=== PATIENT | female | born 1950 | race Native Hawaiian/Other Pacific Islander ===

== ENCOUNTER 2016-10-28 06:32 | Outpatient (CLI) | payer BC ==
[2016-10-28 07:45] LABS: BASOPHILS # (AUTO) 0.1 /CMM (0.0-0.2); BASOPHILS % (AUTO) 0.8 % (0.0-2.0); EOSINOPHILS # (AUTO) 0.4 /CMM (0.0-0.7); EOSINOPHILS % (AUTO) 6.9 % (0.0-6.0); HEMATOCRIT 44 % (33-45); HEMOGLOBIN 14.5 g/dL (11.5-14.8); LYMPHOCYTES % (AUTO) 31.6 % (20.0-44.0); MEAN CORPUSCULAR HEMOGLOBIN 31 PG (26.0-33.0); MEAN CORPUSCULAR HGB CONC 33 g/dl (31.0-36.0); MEAN CORPUSCULAR VOLUME 93 fL (82-100); MONOCYTES # (AUTO) 0.4 /CMM (0.1-1.30); MONOCYTES % (AUTO) 6.5 % (2.0-12.0); NEUTROPHILS # (AUTO) 3.5 /CMM (1.8-8.9); NEUTROPHILS % (AUTO) 54.2 % (43.0-81.0); PLATELET COUNT (AUTO) 287 /CMM (150-450); RDW COEFFICIENT OF VARIATION 13.6 (11.5-15.0); RED BLOOD CELL COUNT(AUTO) 4.75 MIL/uL (4.0-5.2); WHITE BLOOD COUNT (AUTO) 6.4 K/uL (4.3-11.0)
[2016-10-28 08:06] LABS: BILIRUBIN,TOTAL 0.6 mg/dL (0.2-1.0); CALCIUM, SERUM 8.6 mg/dL (8.5-10.1); CREATININE 0.8 mg/dL (0.6-1.3); POTASSIUM 3.8 mmol/L (3.5-5.1); TOTAL PROTEIN, SERUM 8.3 g/dL (6.4-8.2)
[2016-10-28 08:12] LABS: THYROID STIMULATING HORMONE 1.119 uIU/mL (0.358-3.74); URIC ACID 3.2 mg/dL (2.6-7.2)
[2016-10-28 09:21] LABS: EOSINOPHILS % (MANUAL) 9 % (0-4); LYMPHOCYTES % (MANUAL) 30 % (16-48); MONOCYTES % (MANUAL) 4 % (0-11.0); NEUTROPHILS % (MANUAL) 57 (42-76)
[2016-10-29 10:28] LABS: APPEARANCE,URINE CLEAR (CLEAR); COLOR,URINE YELLOW (YELLOW)
[2016-10-29 10:29] LABS: BILIRUBIN,URINE NEGATIVE (NEGATIVE); BLOOD, URINE 1+ Ery/uL (NEGATIVE); KETONES,URINE NEGATIVE (NEGATIVE); NITRITE, URINE NEGATIVE (NEGATIVE); PROTEIN,URINE NEGATIVE (NEGATIVE); UGLUCOSE NEGATIVE (NEGATIVE); UROBILINOGEN,URINE 0.2 EU/dL (0.2)
[2016-10-29 10:30] LABS: LEUKOCYTE ESTERASE ,URINE TRACE (NEGATIVE)
[2016-10-29 10:32] LABS: BACTERIA,URINE Rare /HPF (None Seen); SQUAMOUS EPITHELIAL CELL,UR 0-2 /HPF (None Seen); WBC,URINE 0-2 /HPF (0-3)
== END 2016-10-28 23:59 | disposition home or self-care (01) ==
LOC: LAB 06:32
PROVIDERS: ATTEND Legal Medicine
DX: R06.02 Shortness of breath (principal); E78.5 Hyperlipidemia, unspecified; E55.9 Vitamin D deficiency, unspecified; R79.89 Other specified abnormal findings of blood chemistry
CPT/HCPCS: 36415; 71020-TC; 80053-TC; 80061-TC; 81000-TC; 82306; 84443-TC; 84550-TC; 85025-TC

== ENCOUNTER 2018-03-24 06:12 | Outpatient (CLI) | payer BC ==
[2018-03-24 07:26] LABS: BASOPHILS # (AUTO) 0.1 /CMM (0.0-0.2); BASOPHILS % (AUTO) 1.3 % (0.0-2.0); EOSINOPHILS % (AUTO) 10.5 % (0.0-6.0); HEMATOCRIT 43 % (33-45); LYMPHOCYTES # (AUTO) 1.6 /CMM (0.8-4.8); LYMPHOCYTES % (AUTO) 30.3 % (20.0-44.0); MEAN CORPUSCULAR HGB CONC 33 g/dl (31.0-36.0); MEAN CORPUSCULAR VOLUME 95 fL (82-100); MONOCYTES # (AUTO) 0.3 /CMM (0.1-1.30); MONOCYTES % (AUTO) 5.8 % (2.0-12.0); NEUTROPHILS # (AUTO) 2.8 /CMM (1.8-8.9); NEUTROPHILS % (AUTO) 52.1 % (43.0-81.0); PLATELET COUNT (AUTO) 308 /CMM (150-450); RED BLOOD CELL COUNT(AUTO) 4.55 MIL/uL (4.0-5.2); WHITE BLOOD COUNT (AUTO) 5.3 K/uL (4.3-11.0)
[2018-03-24 07:27] LABS: APPEARANCE,URINE CLEAR (CLEAR); BILIRUBIN,URINE NEGATIVE (NEGATIVE); BLOOD, URINE 1+ Ery/uL (NEGATIVE); KETONES,URINE NEGATIVE (NEGATIVE); LEUKOCYTE ESTERASE ,URINE NEGATIVE (NEGATIVE); NITRITE, URINE NEGATIVE (NEGATIVE); PROTEIN,URINE NEGATIVE (NEGATIVE); UGLUCOSE NEGATIVE (NEGATIVE); UROBILINOGEN,URINE 0.2 EU/dL (0.2)
[2018-03-24 07:29] LABS: COLOR,URINE DARK YELLOW (YELLOW)
[2018-03-24 07:31] LABS: BACTERIA,URINE Few /HPF (None Seen); MUCUS,URINE Moderate /LPF (None Seen); SQUAMOUS EPITHELIAL CELL,UR Few /HPF (None Seen); WBC,URINE 0-2 /HPF (0-3)
[2018-03-24 07:38] LABS: ALBUMIN 3.7 g/dL (3.4-5.0); BILIRUBIN,TOTAL 0.6 mg/dL (0.2-1.0); CALCIUM, SERUM 8.9 mg/dL (8.5-10.1); CREATININE 0.8 mg/dL (0.6-1.3); POTASSIUM 3.8 mmol/L (3.5-5.1)
[2018-03-24 07:44] LABS: THYROID STIMULATING HORMONE 0.641 uIU/mL (0.358-3.74)
== END 2018-03-24 23:59 | disposition home or self-care (01) ==
LOC: LAB 06:12
PROVIDERS: ATTEND Legal Medicine
DX: M41.85 Other forms of scoliosis, thoracolumbar region (principal); J90 Pleural effusion, not elsewhere classified
CPT/HCPCS: 36415; 71046; 80053-TC; 80061-TC; 81000-TC; 82306; 84443-TC; 85025-TC

== ENCOUNTER 2018-06-17 13:47 | Emergency (ER) | payer MEDICARE, BC ==
[~2018-06-17] VITALS: Ht 149.9 cm; Wt 68.0 kg
[2018-06-17 13:47] VITALS: BP 195/123
== END 2018-06-17 14:35 | disposition home or self-care (01) ==
LOC: ER 13:48
DX: S46.812A Strain of other muscles, fascia and tendons at shoulder and upper arm level, left arm, initial encounter (principal); S16.1XXA Strain of muscle, fascia and tendon at neck level, initial encounter; I10 Essential (primary) hypertension; Z98.890 Other specified postprocedural states; Z60.2 Problems related to living alone; V49.59XA Passenger injured in collision with other motor vehicles in traffic accident, initial encounter; Y93.89 Activity, other specified; Y92.413 State road as the place of occurrence of the external cause; Y99.8 Other external cause status

== ENCOUNTER 2018-08-06 09:43 | Outpatient (CLI) | payer BC, MEDICARE | END 2018-08-06 23:59 | disposition home or self-care (01) | LOC: MRI 09:43 | PROVIDERS: ATTEND Legal Medicine | DX: S46.812A Strain of other muscles, fascia and tendons at shoulder and upper arm level, left arm, initial encounter (principal); M25.412 Effusion, left shoulder; M75.52 Bursitis of left shoulder; M75.82 Other shoulder lesions, left shoulder; X58.XXXA Exposure to other specified factors, initial encounter; Y93.89 Activity, other specified; Y92.89 Other specified places as the place of occurrence of the external cause; Y99.8 Other external cause status | CPT/HCPCS: 73221-TC ==

== ENCOUNTER 2018-08-18 07:58 | Outpatient (CLI) | payer BC, MEDICARE | END 2018-08-18 23:59 | disposition home or self-care (01) | LOC: CARD 07:58 | PROVIDERS: ATTEND Internal Medicine Interventional Cardiology | DX: I08.0 Rheumatic disorders of both mitral and aortic valves (principal); I10 Essential (primary) hypertension | CPT/HCPCS: 93307-TC ==

== ENCOUNTER 2018-10-23 06:36 | Outpatient (CLI) | payer BC, MEDICARE ==
[2018-10-23 07:44] LABS: APPEARANCE,URINE CLEAR (CLEAR); BASOPHILS # (AUTO) 0.1 /CMM (0.0-0.2); BASOPHILS % (AUTO) 1.1 % (0.0-2.0); BILIRUBIN,URINE NEGATIVE (NEGATIVE); BLOOD, URINE NEGATIVE Ery/uL (NEGATIVE); COLOR,URINE YELLOW (YELLOW); EOSINOPHILS % (AUTO) 6.7 % (0.0-6.0); HEMATOCRIT 45 % (33-45); HEMOGLOBIN 14.7 g/dL (11.5-14.8); KETONES,URINE NEGATIVE (NEGATIVE); LEUKOCYTE ESTERASE ,URINE NEGATIVE (NEGATIVE); LYMPHOCYTES # (AUTO) 2.2 /CMM (0.8-4.8); LYMPHOCYTES % (AUTO) 32.4 % (20.0-44.0); MEAN CORPUSCULAR HGB CONC 33 g/dl (31.0-36.0); MEAN CORPUSCULAR VOLUME 96 fL (82-100); MONOCYTES # (AUTO) 0.4 /CMM (0.1-1.30); MONOCYTES % (AUTO) 6.1 % (2.0-12.0); NEUTROPHILS # (AUTO) 3.6 /CMM (1.8-8.9); NEUTROPHILS % (AUTO) 53.7 % (43.0-81.0); NITRITE, URINE NEGATIVE (NEGATIVE); PLATELET COUNT (AUTO) 274 /CMM (150-450); PROTEIN,URINE NEGATIVE (NEGATIVE); RED BLOOD CELL COUNT(AUTO) 4.66 MIL/uL (4.0-5.2); UGLUCOSE NEGATIVE (NEGATIVE); UROBILINOGEN,URINE 0.2 EU/dL (0.2); WHITE BLOOD COUNT (AUTO) 6.7 K/uL (4.3-11.0)
[2018-10-23 09:00] LABS: CREATININE 0.9 mg/dL (0.6-1.3); POTASSIUM 3.8 mmol/L (3.5-5.1)
[2018-10-26 10:36] LABS: ALBUMIN 4.3 g/dL (3.4-5.0); BILIRUBIN,DIRECT 0.1 mg/dL (0.0-0.2); BILIRUBIN,TOTAL 0.6 mg/dL (0.2-1.0); TOTAL PROTEIN, SERUM 8.5 g/dL (6.4-8.2)
== END 2018-10-23 23:59 | disposition home or self-care (01) ==
LOC: LAB 06:36
PROVIDERS: ATTEND Legal Medicine
DX: Z01.818 Encounter for other preprocedural examination (principal); I70.0 Atherosclerosis of aorta; I10 Essential (primary) hypertension
CPT/HCPCS: 36415; 71046; 80048-TC; 80061-TC; 80076-TC; 81000-TC; 85025-TC; 85610-TC; 85730-TC; 86850-TC

== ENCOUNTER 2018-10-30 05:19 | Inpatient (IN) | payer BC, MEDICARE ==
[2018-10-30] VITALS (10 sets, daily range): BP systolic 87–143; BP diastolic 54–75
[~2018-10-30] VITALS: Ht 154.9 cm; Wt 70.3 kg
[2018-10-30] MEDS ORDERED: CEFAZOLIN SODIUM/DEXTROSE,ISO 50 ML IV ONE (05:57)
[2018-10-30] MEDS ORDERED: ANESTHESIA TRAY IN PYXIS 1 EA TRAY MC ONE (06:36)
[2018-10-30] MEDS ORDERED: EPINEPHRINE (1:1000) 1 MG/ML AMPUL ONE (06:38)
[2018-10-30] MEDS ORDERED: MIDAZOLAM HCL 2 MG/2ML VIAL ONE (06:47)
[2018-10-30] MEDS ORDERED: HYDROMORPHONE INJ 2 MG/ML DISP.SYRIN ONE (06:47)
[2018-10-30] MEDS ORDERED: BUPIVACAINE 0.25% 75 MG/30 ML VIAL ONE (06:48)
[2018-10-30] MEDS ORDERED: ROCURONIUM BROMIDE 50 MG/5 ML ONE (06:48)
[2018-10-30] MEDS ORDERED: methylPREDNISolone ACETATE 40 MG/ML VIAL ONE (07:36)
[2018-10-30] MEDS ORDERED: HYDROCODONE/APAP 5/325MG 1 EACH TABLET PO PRN ×2 (08:30)
[2018-10-30] MEDS ORDERED: IV LR 1000 ML 1,000 ML IV PRN (08:30)
--- NOTE | 2018-10-30 09:45 | NUR ---
M/S RN NOTES PATIENT RECEIVED ALERT AND ORIENTED X4, IN NO RESPIRATORY DISTRESS, ON NASAL CANULA 2.5, O2 AT 97%, PATIENT COMPLAINING OF HEAVINESS IN THE CHEST, HOB UP. PATIENT WITH NO C/O PAIN AT THIS TIME. VITAL SIGNS STABLE AND MONITORING EVERY 15 MIN. IV OF LR INFUSING ON THE RT HAND, INTACT AND PATENT, NO REDNESS, NO INFILTRATION. PATIENT'S LT SHOULDER WITH C/D/I DRESSING AND ON A SPLINT. PATIENT'S CIRCULATION ASSESSED AND WNL. PATIENT'S NEEDS ATTENDED. BED ON LOWEST LOCKED POSITION, CALL LIGHT WITHIN REACH. WILL CONTINUE TO MONITOR.
[2018-10-30] MEDS ORDERED: OLME1TAB22 PO (10:23)
[2018-10-30] MEDS: ACETAMINOPHEN 325 MG TABLET PO PRN (16:42)
[2018-10-30] MEDS ORDERED: ONDANSETRON HCL/PF 4 MG/2 ML VIAL IV PRN (17:30)
--- NOTE | 2018-10-30 19:25 | NUR ---
M/S RN NOTES PATIENT AWAKE IN BED, NO RESPIRATORY DISTRESS NOTED, 02 AT 99% ON ROOM AIR. PATIENT WITH NO C/O PAIN AT THIS TIME. PATIENT HAD EPISODES OF VOMITING X4, GIVEN ZOFRAN PRESCRIBED. PATIENT'S IV ON THE RT HAND #22G, INTACT AND PATENT WITH LR INFUSING AT 75ML/HR. PATIENT'S NEEDS ATTENDED. BED ON LOWEST LOCKED POSITION, CALL LIGHT WITHIN REACH. WILL ENDORSE TO ONCOMING NURSE.
--- NOTE | 2018-10-30 19:31 | NUR ---
RN NOTES: AT 1925 RECEIVED AWAKE ON BED, SEMI FOWLERS POSITION, LYING COMFORTABLY NO PAIN OR DISCOMFORT AT THIS TIME, A/OX4,ORIENTED TO UNIT AND STAFF,DRESSING ON THE LEFT SHOULDER DRY AND INTACT,IVF OF LR ONGOING AT 75 ML/HR, IV CANNULA RH G#22, FALL, SAFETY AND ASPIRATION PRECAUTION OBSERVED,CALL LIGHT WITHIN EASY REACH. -PATIENT IS FEELING NAUSEATED, ZOFRAN PRN GIVEN BY MORNING RN,CONTINUE TO MONITOR. -PATIENT VERBALIZED SHE HAD ON AND OFF HEADACHE, OFFERED PRN TYLENOL, SHE SAID "LATER".
--- NOTE | 2018-10-30 19:44 | NUR ---
RN NOTES: -PATIENT ABLE TO SLEEP AND REST, KEPT ON CLOSE WATCH, CALL LIGHT WITHIN EASY REACH.
--- NOTE | 2018-10-30 20:47 | NUR ---
RN NOTES: -AT 1999 AWAKE, ASSISTED GOING TO THE BATHROOM, ABLE TO AMBULATE WITH ASSISTANCE,NORMAL GAIT, NO DIZZINESS NOTED WHEN SHE GET UP ACTIVITY TOLERATED WITHOUT PAIN OR DISCOMFORT.SLING ON AT ALL TIME ON THE LUE, DRESSING DRY AND INTACT NO DISCHARGE NOTED ON THE DRESSING SITE. -PLACE IN COMFORTABLE POSITION, CONTINUE ICE PACK ON THE LUE, TRIED TO ENCOURAGE TO EAT SOME SOUP. CALL LIGHT KEPT WITHIN EASY REACH. -AT 2044 ABLE TO TAKE A NAP.KEPT ON CLOSE VISUAL CHECK.
--- NOTE | 2018-10-30 23:48 | NUR ---
RN NOTES: AT 2215 AWAKE, ASSISTED TO THE BATHROOM, AMBULATE WITH SUPERVISION, NO PAIN OR DISCOMFORT, SPO2-94% RA, PERIODS OF FEELING NAUSEATED, SHE VOMITED ONCE AROUND 70CC OF CLEAR LIQUID, OFFERED PRN MEDICATION, SHE WAS RELIEVED WITH SIPS OF WARM TEA. KEPT IN COMFORTABLE POSITION,AT 2300 ABLE TO GO BACK TO SLEEP, IVF ONGOING. CALL LIGHT KEPT WITHIN EASY REACH.
--- NOTE | 2018-10-31 01:21 | NUR ---
RN NOTES: AROUND 0105 AWAKE, ASSISTED TO THE BATHROOM, NOT NAUSEATED ANYMORE, SHE HAS MILD HEADACHE, OFFERED TYLENOL, SHE PREFER ICE PACK ONLY, PUT BACK IN COMFORTABLE POSITION,NO PAIN ON THE SURGICAL SITE(LUE).KEPT ON CLOSE WATCH. Addendum: 10/31/18 at 0430 by NATALY CHAO RN [facility] ADDITIONAL NOTES: PATIENT REQUEST TO TEMPORARILY STOP IVF AT 0105.
[2018-10-31] MEDS: ACETAMINOPHEN 325 MG TABLET PO PRN (03:51)
--- NOTE | 2018-10-31 03:56 | NUR ---
RN NOTES: ASLEEP AT SHORT INTERVALS, URINE X1, AMBULATORY GOING TO BATHROOM, PAIN 3/10 ON THE LUE, TYLENOL PRN GIVEN,NON PHARMACOLOGIC INTERVENTION RENDERED, ICE PACK APPLIED, DIM LIGHT. ASSISTED BACK TO BED.KEPT IN SEMI FOWLERS POSITION NO SOB NOTED.
[2018-10-31 05:00] VITALS: BP 147/84
--- NOTE | 2018-10-31 05:51 | NUR ---
RN NOTES: MORNING CARE DONE, AMBULATE WITH ASSISTANCE AROUND THE F[place], ACTIVITY TOLERATED, NO DISCOMFORT NOTED, SHE ATE SMALL AMOUNT OF FOOD. NO NAUSEA AND VOMITING. SHE CLAIMED SHE FEEL MORE BETTER NOW.NO SOB.
--- NOTE | 2018-10-31 06:40 | NUR ---
RN NOTES: AMBULATING AROUND THE [place], FOR CHEST X-RAY AT 0800, MRSA (RIGHT NARES) SPECIMEN SENT TO LAB, ENDORSED FOR CONTINUITY OF CARE.
--- NOTE | 2018-10-31 07:22 | NUR ---
MS RN OPENING NOTES RECEIVED PT AWAKE AND SITTING ON SIDE OF HER BED IN NO ACUTE SIGNS OF DISTRESS. A/O X4. ABLE TO MAKE NEEDS AND CONCERNS KNOWN, NO C/O PAIN OR ANY DISCOMFORTS VOICED AT THIS TIME. PT WITH LEFT ARM SLING IN PLACE TO LUE,. DRESSING TO SURGICAL SITE C/D/I. ON ROOM AIR, BREATHING EVEN AND UNLABORED. IV ACCESS ON RIGHT HAND G#22 INTACT AND PATENT, IVF REFUSED AT THIS TIME. SAFETY MEASURES IN PLACE. BED IN LOW LOCKED POSITION WITH SR UP X2. CALL LIGHT WITHIN REACH. WILL CONTINUE TO MONITOR PT ACCORDINGLY.
[2018-10-31 08:00] VITALS: BP 138/78
--- NOTE | 2018-10-31 14:05 | NUR ---
RN DISCHARGED NOTES PATIENT DISCHARGED HOME IN STABLE CONDITION. PT IS A/O X4 AND ABLE TO MAKE NEEDS KNOWN, NO C/O PAIN VOICED SINCE START OF SHIFT. V/S TAKEN, STABLE AND RECORDED. IV ACCESS ON RIGHT HAND REMOVED WITH NO BLEEDING NOTED, DRY PRESSURE DRESSING APPLIED. NAME ARMBAND REMOVED. PT WITH LEFT ARM SPLINT IN PLACE AND SURGICAL DRESSING ON LEFT SHOULDER C/D/I. HEALTH TEACHINGS/DISCHARGE INSTRUCTIONS GIVEN TO PT AND VERBALIZED UNDERSTANDING. PT IS AWARE TO SEE DR ENNIS SCHEDULED. PT LEFT UNIT AMBULATORY AT 1330 ACCOMPANIED BY . AND CHARGE NURSE AWARE OF DISCHARGE.
== END 2018-10-31 13:30 | disposition home or self-care (01) | DRG 502 ==
LOC: DS 05:19 → MED 08:00
PROVIDERS: ADMIT Legal Medicine; ATTEND Legal Medicine
PROC: 0LB24ZZ Excision of Left Shoulder Tendon, Percutaneous Endoscopic Approach (ICD-10-PCS; principal; 2018-10-30)
DX: M75.42 Impingement syndrome of left shoulder (principal); I10 Essential (primary) hypertension; E78.5 Hyperlipidemia, unspecified; V89.2XXS Person injured in unspecified motor-vehicle accident, traffic, sequela; M65.9 Synovitis and tenosynovitis, unspecified
CPT/HCPCS: 71045-TC; 87081-TC; 88304-TC; 88311-TC; A4217; A4565; A6403; G0378; J0171; J0690; J1030; J1100; J1170; J1200; J2250; J2405; J2704; J2710; J3010; J3490; J7120

== ENCOUNTER 2019-09-17 11:44 | Outpatient (CLI) | payer BC, MEDICARE ==
[~2019-09-17 11:44] MED LIST: OLME1TAB22 PO
== END 2019-09-17 23:59 | disposition home or self-care (01) ==
LOC: LAB 11:44
PROVIDERS: ATTEND Legal Medicine
DX: Z20.828 Contact with and (suspected) exposure to other viral communicable diseases (principal)
CPT/HCPCS: 36415

== ENCOUNTER 2019-10-22 06:16 | Outpatient (CLI) | payer BC, MEDICARE ==
[2019-10-22 08:28] LABS: APPEARANCE,URINE CLEAR (CLEAR); BILIRUBIN,URINE NEGATIVE (NEGATIVE); BLOOD, URINE TRACE-INTA Ery/uL (NEGATIVE); COLOR,URINE YELLOW (YELLOW); KETONES,URINE NEGATIVE (NEGATIVE); LEUKOCYTE ESTERASE ,URINE NEGATIVE (NEGATIVE); NITRITE, URINE NEGATIVE (NEGATIVE); PROTEIN,URINE NEGATIVE (NEGATIVE); UGLUCOSE NEGATIVE (NEGATIVE); UROBILINOGEN,URINE 0.2 EU/dL (0.2)
[2019-10-22 08:30] LABS: BASOPHILS # (AUTO) 0.1 /CMM (0.0-0.2); BASOPHILS % (AUTO) 1.4 % (0.0-2.0); EOSINOPHILS % (AUTO) 5.3 % (0.0-6.0); HEMATOCRIT 44 % (33-45); HEMOGLOBIN 14.5 g/dL (11.5-14.8); LYMPHOCYTES # (AUTO) 1.9 /CMM (0.8-4.8); MEAN CORPUSCULAR HGB CONC 33 g/dl (31.0-36.0); MEAN CORPUSCULAR VOLUME 95 fL (82-100); MONOCYTES # (AUTO) 0.4 /CMM (0.1-1.30); MONOCYTES % (AUTO) 6.9 % (2.0-12.0); NEUTROPHILS # (AUTO) 2.8 /CMM (1.8-8.9); NEUTROPHILS % (AUTO) 51.4 % (43.0-81.0); PLATELET COUNT (AUTO) 269 /CMM (150-450); RED BLOOD CELL COUNT(AUTO) 4.61 MIL/uL (4.0-5.2); WHITE BLOOD COUNT (AUTO) 5.5 K/uL (4.3-11.0)
[2019-10-22 09:02] LABS: ALBUMIN 3.9 g/dL (3.4-5.0); BILIRUBIN,TOTAL 0.6 mg/dL (0.2-1.0); CREATININE 0.9 mg/dL (0.6-1.3); POTASSIUM 3.9 mmol/L (3.5-5.1); TOTAL PROTEIN, SERUM 8.3 g/dL (6.4-8.2)
[2019-10-22 09:08] LABS: RBC,URINE 0-2 /HPF (0-2); WBC,URINE 0-2 /HPF (0-3)
[2019-10-22 09:09] LABS: BACTERIA,URINE Moderate /HPF (None Seen); SQUAMOUS EPITHELIAL CELL,UR Few /HPF (None Seen)
[2019-10-22 13:19] LABS: FREE T4 (FREE THYROXINE) 1.22 ng/dL (0.76-1.46); THYROID STIMULATING HORMONE 1.011 uIU/mL (0.358-3.74)
== END 2019-10-22 23:59 | disposition home or self-care (01) ==
LOC: LAB 06:16
PROVIDERS: ATTEND Legal Medicine
DX: R06.02 Shortness of breath (principal); I70.0 Atherosclerosis of aorta; Z00.00 Encounter for general adult medical examination without abnormal findings
CPT/HCPCS: 36415; 71046; 80053-TC; 80061-TC; 81000-TC; 82306; 84439-TC; 84443-TC; 85025-TC; 87086-TC

== ENCOUNTER 2019-11-24 07:04 | Outpatient (CLI) | payer BC, MEDICARE | END 2019-11-24 23:59 | disposition home or self-care (01) | LOC: CARD 07:04 | PROVIDERS: ATTEND Legal Medicine | DX: R09.89 Other specified symptoms and signs involving the circulatory and respiratory systems (principal) | CPT/HCPCS: 93880-TC ==

== ENCOUNTER 2019-12-23 13:33 | Outpatient (CLI) | payer BC, MEDICARE | END 2019-12-23 23:59 | disposition home or self-care (01) | LOC: US 13:33 | PROVIDERS: ATTEND Legal Medicine | DX: E04.2 Nontoxic multinodular goiter (principal) | CPT/HCPCS: 76536-TC ==

== ENCOUNTER 2020-02-16 11:08 | Emergency (ER) | payer BC, MEDICARE, OTHER ==
[~2020-02-16] VITALS: Ht 154.9 cm; Wt 68.0 kg
[2020-02-16 11:10] VITALS: BP 174/118
--- NOTE | 2020-02-16 11:46 | NUR ---
Patient a/ox4, breathing even and unlabored, no sob noted. Denies difficulty breathing at this time. Ambulatory with steady gait. COVID SWAB SENT. Patient discharged to home in stable condition. Written and verbal after care instructions given. Patient verbalizes understanding of instruction.
--- NOTE | 2020-02-17 19:03 | NUR ---
INFORMED PATIENT PCR RESULT IS POSITIVE.
== END 2020-02-16 11:46 | disposition home or self-care (01) ==
LOC: ER 11:08
DX: U07.1 COVID-19 (principal); R50.9 Fever, unspecified; M79.10 Myalgia, unspecified site; I10 Essential (primary) hypertension
CPT/HCPCS: 87804; 99283; C9803; U0003

== ENCOUNTER 2020-08-14 12:55 | Emergency (ER) | payer BC, OTHER ==
[2020-08-14 13:05] VITALS: BP 157/112
--- NOTE | 2020-08-14 13:05 | NUR ---
The patient bibs for c/o see floaters in the eyes. The patient denies pain. Denies change in vision. No discharge from the eyes. The patient is in ER bed #17. Will continue to monitor the patient.
--- NOTE | 2020-08-14 13:09 | NUR ---
The patient alert and oriented x4. Patient discharged to home in stable condition. Written and verbal after care instructions given. Patient verbalizes understanding of instruction.
== END 2020-08-14 13:09 | disposition home or self-care (01) ==
LOC: ER 12:58
DX: H43.391 Other vitreous opacities, right eye (principal); I10 Essential (primary) hypertension; Z98.890 Other specified postprocedural states; Z79.899 Other long term (current) drug therapy

== ENCOUNTER 2020-09-19 07:45 | Outpatient (CLI) | payer BC ==
[2020-09-19 09:21] LABS: BASOPHILS % (AUTO) 0.7 % (0.0-2.0); EOSINOPHILS % (AUTO) 4.7 % (0.0-6.0); HEMATOCRIT 42 % (33-45); HEMOGLOBIN 13.9 g/dL (11.5-14.8); LYMPHOCYTES % (AUTO) 32.4 % (20.0-44.0); MEAN CORPUSCULAR HGB CONC 33 g/dl (31.0-36.0); MEAN CORPUSCULAR VOLUME 96 fL (82-100); MONOCYTES # (AUTO) 0.3 K/uL (0.1-1.30); MONOCYTES % (AUTO) 5.2 % (2.0-12.0); NEUTROPHILS # (AUTO) 3.5 K/uL (1.8-8.9); PLATELET COUNT (AUTO) 268 K/uL (150-450); RED BLOOD CELL COUNT(AUTO) 4.35 MIL/uL (4.0-5.2); WHITE BLOOD COUNT (AUTO) 6.1 K/uL (4.3-11.0)
[2020-09-19 09:29] LABS: BILIRUBIN,URINE SMALL (NEGATIVE); COLOR,URINE YELLOW (YELLOW); LEUKOCYTE ESTERASE ,URINE NEGATIVE (NEGATIVE); NITRITE, URINE NEGATIVE (NEGATIVE); PROTEIN,URINE TRACE mg/dl (NEGATIVE); UGLUCOSE NEGATIVE (NEGATIVE); UROBILINOGEN,URINE 0.2 EU/dL (0.2)
[2020-09-19 09:45] LABS: BACTERIA,URINE Rare /HPF (None Seen); SQUAMOUS EPITHELIAL CELL,UR Rare /HPF (None Seen); WBC,URINE 0-2 /HPF (0-3)
[2020-09-19 09:54] LABS: URIC ACID 3.7 mg/dL (2.6-7.2)
[2020-09-19 10:11] LABS: ALBUMIN 3.8 g/dL (3.4-5.0); BILIRUBIN,TOTAL 0.6 mg/dL (0.2-1.0); CALCIUM, SERUM 8.5 mg/dL (8.5-10.1); CREATININE 0.8 mg/dL (0.6-1.3); POTASSIUM 3.5 mmol/L (3.5-5.1); TOTAL PROTEIN, SERUM 8.1 g/dL (6.4-8.2)
[2020-09-19 12:37] LABS: THYROID STIMULATING HORMONE 0.589 uIU/mL (0.358-3.74)
== END 2020-09-19 23:59 | disposition home or self-care (01) ==
LOC: LAB 07:45
PROVIDERS: ATTEND Legal Medicine
DX: E11.9 Type 2 diabetes mellitus without complications (principal); E78.5 Hyperlipidemia, unspecified; I25.10 Atherosclerotic heart disease of native coronary artery without angina pectoris; E03.9 Hypothyroidism, unspecified; D64.9 Anemia, unspecified; J84.9 Interstitial pulmonary disease, unspecified; I70.0 Atherosclerosis of aorta; Z00.00 Encounter for general adult medical examination without abnormal findings
CPT/HCPCS: 36415; 71046; 80053-TC; 80061-TC; 81001; 82306; 82607-TC; 82728-TC; 83540-TC; 84443-TC; 84550-TC; 85025-TC

== ENCOUNTER 2023-04-21 06:07 | Emergency (ER) | payer BC, OTHER ==
[~2023-04-21] VITALS: Ht 154.9 cm; Wt 63.5 kg
[~2023-04-21 06:07] MED LIST changes: +AMOX-430 PO; +FAMO-131 PO; +METH4TAB3 PO
[2023-04-21 07:24] VITALS: BP 203/155; TEMP 98.2; O2SAT 98
== END 2023-04-21 07:25 | disposition home or self-care (01) ==
LOC: ER 06:09
DX: M25.511 Pain in right shoulder (principal); I10 Essential (primary) hypertension; Z79.899 Other long term (current) drug therapy; Z98.890 Other specified postprocedural states
CPT/HCPCS: 73030-TC